=== PATIENT | male | born 1960 | race Caucasian/White ===

== ENCOUNTER 2017-12-16 18:25 | Emergency (ER) | payer SELFPAY ==
[~2017-12-16] VITALS: Ht 175.3 cm; Wt 80.0 kg
[2017-12-16] MEDS ORDERED: SODIUM CHLORIDE 0.9% 1,000 ML IV ONE (19:13)
[2017-12-16] MEDS ORDERED: IBUPROFEN 600MG TABLET PO ONE (19:15)
[2017-12-16] MEDS ORDERED: BACITRACIN ZINC OINT UDPKT TOP ONE (19:15)
[2017-12-16] MEDS ORDERED: TETANUS, DIPHTHERIA, PERTUSSIS VAC/PF 0.5ML (>7YR OLD) IM ONE (19:15)
[2017-12-16 20:18] LABS: BASOPHILS % 1.2 % (0.0-2.0); EOSINOPHILS % 3.4 % (0.0-5.0); HEMATOCRIT. 47.4 % (42.0-52.0); HEMOGLOBIN. 15.8 g/dL (14.0-18.0); LYMPHOCYTES % 22.4 % (20.0-50.0); MEAN CORPUSCULAR HEMOGLOBIN 31.3 pg (28.0-32.0); MEAN CORPUSCULAR VOLUME 93.9 fL (80.0-94.0); MEAN PLATELET VOLUME 8.2 fl (7.4-10.4); MONOCYTES % 7.4 % (2.0-8.0); NEUTROPHILS % 65.6 % (40.0-76.0); PLATELET 275 x1000/uL (130-400); RED BLOOD CELL COUNT 5.04 mill/uL (4.7-6.1); RED CELL DISTRIBUTION WIDTH 14.9 % (11.6-14.6)
[2017-12-16 20:21] LABS: CHLORIDE 109 mEq/L (98-107)
[2017-12-16 20:25] LABS: ETHANOL BLOOD 266 mg/dL
[2017-12-16 21:12] LABS: *AMPHETAMINES SCREEN URINE NEGATIVE (NEGATIVE); *BARBITURATES SCREEN URINE NEGATIVE (NEGATIVE); *BENZODIAZEPINES SCREEN URINE NEGATIVE (NEGATIVE)
[2017-12-16 21:13] LABS: *COCAINE SCREEN URINE NEGATIVE (NEGATIVE); CANNABINOID URINE SCREEN NEGATIVE (NEGATIVE); METHADONE URINE SCREEN NEGATIVE (NEGATIVE); OPIATES URINE SCREEN NEGATIVE (NEGATIVE); PHENCYCLIDINE URINE SCREEN NEGATIVE (NEGATIVE)
[2017-12-16 23:28] VITALS: BP 124/77
[2017-12-17] MEDS ORDERED: ONDANSETRON 4MG ODT PO ONE (03:00)
== END 2017-12-17 03:15 | disposition home or self-care (01) ==
LOC: ER 18:25
DX: S01.81XA Laceration without foreign body of other part of head, initial encounter (principal); F10.129 Alcohol abuse with intoxication, unspecified; Z79.899 Other long term (current) drug therapy; W19.XXXA Unspecified fall, initial encounter; Y93.89 Activity, other specified; Y92.89 Other specified places as the place of occurrence of the external cause; Y99.8 Other external cause status; Y90.8 Blood alcohol level of 240 mg/100 ml or more
CPT/HCPCS: 12011; 36415; 70450; 72100; 80053; 80305; 85025; 90471; 90715; 99285; A4217; G0482; J7030; Q0162; Z7610